=== PATIENT | female | born 1980 | race Two or more races ===

== ENCOUNTER 2018-07-12 19:33 | Emergency (ER) | payer OTHER ==
[~2018-07-12] VITALS: Ht 165.1 cm; Wt 64.0 kg
[2018-07-12 19:50] VITALS: BP 109/68
[2018-07-12] MEDS ORDERED: NKM (19:53)
[2018-07-12] MEDS ORDERED: CELEXA10 MG ORAL (19:54)
--- NOTE | 2018-07-12 20:00 | NUR ---
ED Nurse Note: Patient presents with complaints of UTI, urine sent to lab.
--- NOTE | 2018-07-12 20:12 | Emergency Room Report ---
History of Present Illness General Chief Complaint: Female Urogenital Problems Source: Patient Present Illness HPI 37-year-old female patient presents the ER complaining of dysuria for the past 2 days. Denies frequency or urgency. Denies vaginal discharge. Denies hematuria. Reports taken at home urinary tract infection test that came back positive. Denies pelvic rash or lesions. Denies concern for STI, states any sexual monogamous relationship with one partner. Denies fever, vomiting, chest pain, shortness of breath. Denies abdominal pain. Reports last menstrual period a few days ago. Denies taking control medication. Allergies: Coded Allergies: No Known Allergies (Unverified , 07/12/18) Patient History Past Medical History: see triage record Last Menstrual Period: 07/07/2018 Now: No Reviewed Nursing Documentation: PMH: Agreed; PSxH: Agreed Nursing Documentation-PMH Past Medical History: No Stated History Review of Systems All Other Systems: negative except mentioned in HPI Physical Exam Vital Signs Date Time Temp Pulse Resp B/P (MAP) Pulse Ox O2 Delivery O2 Flow Rate FiO2 07/12/18 19:47 97.9 61 18 109/68 100 Room Air Sp02 EP Interpretation: reviewed, normal General Appearance: well appearing, no apparent distress, alert, GCS 15, non- toxic Head: normocephalic, atraumatic Eyes: bilateral eye normal inspection, bilateral eye PERRL ENT: hearing grossly normal, normal pharynx, no angioedema, normal voice, uvula midline, moist mucus membranes Neck: full range of motion Respiratory: lungs clear, normal breath sounds, no rhonchi, no respiratory distress, no accessory muscle use, no wheezing, speaking full sentences Cardiovascular #1: regular rate, rhythm, no edema Gastrointestinal: non tender, soft, no mass, non-distended, no guarding, no rebound Genitourinary: no CVA tenderness, ext genitalia/vag normal, deferred Musculoskeletal: back normal, digits/nails normal, gait/station normal, normal range of motion, non-tender Neurologic: alert, oriented x3, responsive, motor strength/tone normal, sensory intact Skin: no rash Medical Decision Making PA Attestation Dr. Israel is my supervising Physician whom patient management has been discussed with. Diagnostic Impression: Primary Impression: Dysuria ER Course Pt presents to ED c/o urinary symptoms. DDX considered but are not limited to cystitis, pyelonephritis, STI, vaginitis, , BV, yeast infection. No abdominal TTP, negative obturator, negative Briggs, negative Rovsing, low suspicion for cholecystitis or appendicitis, does not require imaging or labs at this time. VITAL SIGNS are WNL, patient is afebrile. Ordered UA. ER COURSE With female retail attendant present, external vaginal exam performed, no pelvic rash or lesions, no herpes, no chancre, no fungal infection. UA results show positive leukocyte esterase, negative nitrites negative bacteria , low suspicion for UTI however patient symptomatic, will provide patient with antibiotics, begin taking if symptoms worsen, follow with primary care provider to discuss need for antibiotic use. Urine negative. Will provide Pyridium for pain symptoms. May cause urine to turn orange. If concern for STI, followup with STI clinic for testing and treatment. Denies STI concern. Patient is resting comfortably in chair, nontoxic appearing, in no acute distress. Patient states they feel better and is ready to go home. Discuss treatment with Dr. Israel, agrees with treatment plan. ER precautions given. DISCHARGE Patient is stable for discharge. Patient resting comfortably, in no acute distress, nontoxic appearing, talking without difficulty. Will provide with patient care instructions and any necessary prescriptions. Patient understands and agrees to treatment plan. Patient encouraged to drink plenty of fluids. Patient to take medication as instructed. Care plan and follow-up instructions provided. Patient questions asked and answered. Reports understanding and agreement to treatment plan. Patient instructed to follow-up with primary care provider in 3 - 5 days. ER precautions given. Patient instructed to return to ER immediately for any new or worsening of symptoms. Including but not limited to fever, abdominal pain , intractable vomiting. - Please note that this Emergency Department Report was dictated using [employer] system engineer technology software, occasionally this can lead to erroneous entry secondary to interpretation by the dictation equipment. Labs Test 07/12/18 19:52 Urine Color Pale yellow Urine Appearance Clear Urine pH 5 (4.5-8.0) Urine Specific Accord 1.015 (1.005-1.035) Urine Protein Negative (NEGATIVE) Urine Glucose (UA) Negative (NEGATIVE) Urine Ketones Negative (NEGATIVE) Urine Blood Negative (NEGATIVE) Urine Nitrite Negative (NEGATIVE) Urine Bilirubin Negative (NEGATIVE) Urine Urobilinogen Normal MG/DL (0.0-1.0) Urine Leukocyte Esterase 1+ (NEGATIVE) Urine RBC 0 /HPF (0 - 2) Urine WBC 0-2 /HPF (0 - 2) Urine Squamous Epithelial Cells Occasional /LPF Urine Bacteria None /HPF (NONE) Urine HCG, Qualitative Negative (NEGATIVE) Last Vital Signs Date Time Temp Pulse Resp B/P (MAP) Pulse Ox O2 Delivery O2 Flow Rate FiO2 07/12/18 19:47 97.9 61 18 109/68 100 Room Air Status: improved Disposition: HOME, SELF-CARE Condition: Stable Scripts Phenazopyridine Hcl* (PYRIDIUM*) 100 Mg Tablet 100 MG ORAL THREE TIMES A DAY, #15 TAB Prov: Elijah Hoffman 07/12/18 Nitrofurantoin Monohyd/M-Cryst* (MACROBID 100 MG*) 100 Mg Capsule 100 MG ORAL EVERY 12 HOURS for 7 Days, #14 CAP Prov: Elijah Hoffman 07/12/18 Patient Instructions: Dysuria, Urinary Tract Infection Additional Instructions: Followup with primary care provider and followup with and./or OBGYN. Drink plenty of fluids. Take medications as directed. Pyridium has SE of turning urine orange. Patient questions asked and answered. ER precautions given, patient instructed to return to ER immediately for any new or worsening of symptoms. Elijah Hoffman Jul 12, 2018 20:12
[2018-07-12 20:19] LABS: APPEARANCE,URINE CLEAR; BILIRUBIN, URINE NEGATIVE (NEGATIVE); COLOR,URINE PALE YELLOW; GLUCOSE, URINE (UA) NEGATIVE (NEGATIVE); KETONES,URINE NEGATIVE (NEGATIVE); LEUKOCYTE ESTERASE ,URINE 1+ (NEGATIVE); NITRITE,URINE NEGATIVE (NEGATIVE); PH,URINE 5 (4.5-8.0); PROTEIN,URINE NEGATIVE (NEGATIVE); UROBILINOGEN,URINE NORMAL MG/DL (0.0-1.0)
[2018-07-12] MEDS ORDERED: PHENAZOPYRIDIN100 MG ORAL (21:06)
[2018-07-12] MEDS ORDERED: NITROFURANTOIN100 M2 ORAL (21:06)
--- NOTE | 2018-07-12 21:06 | NUR ---
ED Nurse Note: VAginal exam completed by ER provider negtive for any tangible findings. Patient now getting dressed.
--- NOTE | 2018-07-12 21:16 | NUR ---
ED Nurse Note: Patient cleared for discharge by ER provider, patient ambulatory with steady gait, A&Ox4, no s/s of acute distress. Patient verbalized understanding of discharge instructions, UID band removed, patient departed with all belongings.
[2018-07-12 21:18] VITALS: BP 109/68
== END 2018-07-12 21:19 | disposition home or self-care (01) ==
LOC: EMR 20:05
DX: R30.0 Dysuria (principal)
CPT/HCPCS: 81003; 81025; 99283